=== PATIENT | male | born 1960 | race Caucasian/White ===

== ENCOUNTER 2020-12-24 10:06 | Emergency (ER) | payer MEDICAID ==
[~2020-12-24] VITALS: Ht 177.8 cm; Wt 61.4 kg
[2020-12-24] MEDS ORDERED: ACETAMINOPHEN 500 MG TABLET PO ONE (14:30)
[2020-12-24] MEDS ORDERED: DOXYCYCLINE HYCLATE 100 MG TABLET PO ONE (14:30)
[2020-12-24] MEDS ORDERED: DiphenhydrAMINE HCL 25 MG CAPSULE PO ONE (14:30)
[2020-12-24] MEDS ORDERED: LORazepam 1 MG TABLET PO ONE (14:30)
[2020-12-24 14:38] LABS: BASOPHILS % (AUTO) 0.7 % (0.0-2.0); HEMOGLOBIN 14.2 g/dL (13.5-17.5); LYMPHOCYTES # (AUTO) 1.7 K/uL (1.0-4.8); MEAN CORPUSCULAR HEMOGLOBIN 31.4 pg (26.0-34.0); MEAN CORPUSCULAR HGB CONC 33.1 G/dL (31.0-37.0); MEAN CORPUSCULAR VOLUME 95 fL (80-100); MONOCYTES # (AUTO) 0.7 K/uL (0.1-1.0); MONOCYTES % (AUTO) 6.9 % (2.0-9.0); NEUTROPHILS # (AUTO) 6.9 K/uL (1.8-7.7); NEUTROPHILS % (AUTO) 71.4 % (40.0-70.0); PLATELET COUNT (AUTO) 462 K/uL (150-450); RED BLOOD CELL COUNT(AUTO) 4.53 MIL/uL (4.50-5.90); RED CELL DISTRIBUTION WIDTH 13.9 % (11.5-14.5)
[2020-12-24 14:46] LABS: ANION GAP 9 mmol/L (8-16); CALCIUM, TOTAL 9.1 mg/dL (8.8-10.5); CARBON DIOXIDE 30 mmol/L (22-29); CHLORIDE 103 mmol/L (98-107); CREATININE 0.68 mg/dL (0.60-1.30); GLOMERULAR FILTR. RATE CALC > 60 mL/min (>60); GLUCOSE,RANDOM 115 mg/dL (70-110); POTASSIUM 3.7 mmol/L (3.5-5.1); SODIUM SERUM 142 mmol/L (136-145); UREA NITROGEN, BLOOD 16 mg/dL (7-18)
[2020-12-24 14:52] LABS: ALANINE AMINOTRANSFERASE 21 U/L (12-78); ALKALINE PHOSPHATASE 125 U/L (46-116); ASPARTATE AMINOTRANSFERASE 19 U/L (15-37); BILIRUBIN,TOTAL 0.6 mg/dL (0.1-1.0); TOTAL PROTEIN, SERUM 8.9 g/dL (6.4-8.2)
[2020-12-24 16:17] VITALS: BP 126/80
[2020-12-24 17:11] LABS: AMPHET/METH SCREEN,URINE NEGATIVE (NEGATIVE); BARBITURATE SCREEN, URINE NEGATIVE (NEGATIVE); BENZODIAZEPINES SCREEN,URINE NEGATIVE (NEGATIVE); CANNABINOID SCREEN,URINE NEGATIVE (NEGATIVE); COCAINE SCREEN,URINE NEGATIVE (NEGATIVE); METHADONE SCREEN, URINE NEGATIVE (NEGATIVE); OPIATE SCREEN,URINE NEGATIVE (NEGATIVE); PHENCYCLIDINE SCREEN,URINE NEGATIVE (NEGATIVE)
== END 2020-12-25 00:11 | disposition home or self-care (01) ==
LOC: EMS 10:06
DX: S30.861A Insect bite (nonvenomous) of abdominal wall, initial encounter (principal); F20.9 Schizophrenia, unspecified; W57.XXXA Bitten or stung by nonvenomous insect and other nonvenomous arthropods, initial encounter; Y93.89 Activity, other specified; Y92.89 Other specified places as the place of occurrence of the external cause; Y99.8 Other external cause status
CPT/HCPCS: 36415; 80053; 80307; 85025; 99284; G0480

== ENCOUNTER 2021-01-24 09:09 | Inpatient (IN) | payer MEDICAID ==
[~2021-01-24] VITALS: Ht 177.8 cm; Wt 66.8 kg
[2021-01-24 10:08] LABS: EOSINOPHILS % (AUTO) 1.2 % (1.0-6.0); HEMATOCRIT 47.5 % (41-53); HEMOGLOBIN 15.7 g/dL (13.5-17.5); LYMPHOCYTES # (AUTO) 1.3 K/uL (1.0-4.8); LYMPHOCYTES % (AUTO) 18.5 % (22.0-44.0); MEAN CORPUSCULAR HGB CONC 32.9 G/dL (31.0-37.0); MEAN CORPUSCULAR VOLUME 94 fL (80-100); MONOCYTES # (AUTO) 0.5 K/uL (0.1-1.0); MONOCYTES % (AUTO) 7.5 % (2.0-9.0); NEUTROPHILS # (AUTO) 5.2 K/uL (1.8-7.7); NEUTROPHILS % (AUTO) 71.8 % (40.0-70.0); PLATELET COUNT (AUTO) 447 K/uL (150-450); RED BLOOD CELL COUNT(AUTO) 5.05 MIL/uL (4.50-5.90); RED CELL DISTRIBUTION WIDTH 13.3 % (11.5-14.5)
[2021-01-24 10:17] LABS: ANION GAP 5 mmol/L (8-16); CALCIUM, TOTAL 9.3 mg/dL (8.8-10.5); CARBON DIOXIDE 32 mmol/L (22-29); CHLORIDE 107 mmol/L (98-107); CREATININE 0.83 mg/dL (0.60-1.30); GLOMERULAR FILTR. RATE CALC > 60 mL/min (>60); GLUCOSE,RANDOM 151 mg/dL (70-110); POTASSIUM 4.6 mmol/L (3.5-5.1); SODIUM SERUM 144 mmol/L (136-145); UREA NITROGEN, BLOOD 19 mg/dL (7-18)
[2021-01-24 10:23] LABS: ALANINE AMINOTRANSFERASE 14 U/L (12-78); ALBUMIN 3.8 g/dL (3.4-5.0); ALKALINE PHOSPHATASE 104 U/L (46-116); ASPARTATE AMINOTRANSFERASE 14 U/L (15-37); BILIRUBIN,TOTAL 0.7 mg/dL (0.1-1.0); TOTAL PROTEIN, SERUM 8.6 g/dL (6.4-8.2)
[2021-01-24] MEDS ORDERED: LORazepam 2 MG TABLET PO PRN (14:15)
[2021-01-24] MEDS ORDERED: QUEtiapine FUMARATE 100 MG TABLET PO PRN (14:15)
[2021-01-24 14:33] LABS: COVID AG,FIA SOURCE NASOPHARYNGEAL
[2021-01-24 14:50] LABS: AMPHET/METH SCREEN,URINE NEGATIVE (NEGATIVE); BARBITURATE SCREEN, URINE NEGATIVE (NEGATIVE); BENZODIAZEPINES SCREEN,URINE NEGATIVE (NEGATIVE); CANNABINOID SCREEN,URINE NEGATIVE (NEGATIVE); COCAINE SCREEN,URINE NEGATIVE (NEGATIVE); METHADONE SCREEN, URINE NEGATIVE (NEGATIVE); OPIATE SCREEN,URINE NEGATIVE (NEGATIVE); PHENCYCLIDINE SCREEN,URINE NEGATIVE (NEGATIVE)
[2021-01-24 15:08] LABS: APPEARANCE,URINE CLEAR (CLEAR); GLUCOSE, URINE (UA) NEGATIVE (NEGATIVE); KETONES,URINE 15 mg/dL (NEGATIVE); LEUKOCYTE ESTERASE ,URINE NEGATIVE (NEGATIVE); NITRATE,URINE NEGATIVE (NEGATIVE); OCCULT BLOOD,URINE NEGATIVE (NEGATIVE); PROTEIN,URINE NEGATIVE (NEGATIVE); UROBILINOGEN,URINE 0.2 mg/dL (<=1.0)
[2021-01-24 15:09] LABS: BILIRUBIN,URINE PRELIM. POSITIVE (NEGATIVE)
[2021-01-24] MEDS: ZOLPIDEM TARTRATE 10 MG TABLET PO PRN (20:42)
[2021-01-25 08:44] VITALS: BP 114/78
[2021-01-25 10:13] LABS: CHOL/HDL RATIO 3.2 (4.2-7.3)
[2021-01-25] MEDS ORDERED: MAG HYDROX/AL HYDROX/SIMETH ES 30 ML SUSPENSION UDCUP PO PRN (10:15)
[2021-01-25] MEDS ORDERED: NICOTINE 14 MG/24 HOUR PATCH TD PRN (10:15)
[2021-01-25] MEDS ORDERED: ALBUTEROL SULFATE HFA 90 MCG/PUFF 8 GM INHALER IH PRN (10:15)
[2021-01-25] MEDS ORDERED: LOPERAMIDE HCL 2 MG CAPSULE PO PRN (10:15)
[2021-01-25] MEDS ORDERED: ONDANSETRON HCL 4 MG TABLET PO PRN (10:15)
[2021-01-25] MEDS ORDERED: MAGNESIUM HYDROXIDE SUSPENSION 30 ML UDCUP PO PRN (10:15)
[2021-01-25] MEDS ORDERED: GuaiFENesin/D-METHORPHAN [SUGAR-FREE] 200-20MG/10 ML SYRUP UDCUP PO PRN (10:15)
[2021-01-25] MEDS ORDERED: IBUPROFEN 400 MG TABLET PO PRN (10:15)
[2021-01-25] MEDS ORDERED: CloNIDine HCL 0.1 MG TABLET PO PRN (10:15)
[2021-01-25] MEDS ORDERED: PETROLATUM,WHITE 28 GM JELLY TP PRN (10:15)
[2021-01-25] MEDS ORDERED: DOCUSATE SODIUM 100 MG CAPSULE PO PRN (10:15)
[2021-01-25] MEDS ORDERED: ACETAMINOPHEN 325 MG TABLET PO PRN (10:15)
[2021-01-25] MEDS: OLANZapine 5 MG TABLET PO SCH ×2 (11:42→16:35)
[2021-01-25] MEDS ORDERED: PERMETHRIN 5% 60 GM CREAM TP ONE (14:45)
[2021-01-25] MEDS ORDERED: INFLUENZA VIRUS VACCINE QVS 2021-22 (6MO+)/PF 60 MCG/0.5 ML SYRINGE IM. ONE (14:45)
[2021-01-25 16:38] VITALS: BP_SYST 114
[2021-01-25 16:51] VITALS: BP 125/75
[2021-01-26] MEDS: OLANZapine 5 MG TABLET PO SCH ×2 (08:35→16:08)
[2021-01-26 10:18] VITALS: BP 126/84
[2021-01-26 16:00] VITALS: BP 117/79
[2021-01-27 08:59] VITALS: BP 108/68
[2021-01-27] MEDS: OLANZapine 5 MG TABLET PO SCH ×2 (09:44→16:23)
[2021-01-27 16:56] VITALS: BP 107/76
[2021-01-28] MEDS: OLANZapine 5 MG TABLET PO SCH ×2 (08:25→16:03)
[2021-01-28 09:00] VITALS: BP 112/74
[2021-01-28 16:00] VITALS: BP 112/77
[2021-01-29] MEDS: OLANZapine 5 MG TABLET PO SCH (08:44)
[2021-01-29 09:19] VITALS: BP 110/79
[2021-01-29 16:00] VITALS: BP 101/80
[2021-01-29] MEDS: OLANZapine 10 MG TABLET PO SCH (20:01)
[2021-01-30 09:00] VITALS: BP 122/79
[2021-01-30] MEDS: OLANZapine 5 MG TABLET PO SCH (09:00)
[2021-01-30 17:05] VITALS: BP 101/71
[2021-01-30] MEDS: OLANZapine 10 MG TABLET PO SCH (20:10)
[2021-01-31] MEDS: OLANZapine 5 MG TABLET PO SCH (08:39)
[2021-01-31 09:41] VITALS: BP 119/76
[2021-01-31 16:00] VITALS: BP 116/65
[2021-01-31] MEDS: OLANZapine 10 MG TABLET PO SCH (20:09)
[2021-02-01 08:52] LABS: COVID AG,FIA SOURCE NASOPHARYNGEAL
[2021-02-01] MEDS: OLANZapine 5 MG TABLET PO SCH (08:56)
[2021-02-01 10:11] VITALS: BP 138/88
[2021-02-01 16:21] VITALS: BP 139/77
[2021-02-01] MEDS: OLANZapine 10 MG TABLET PO SCH (20:27)
[2021-02-02 08:00] VITALS: BP 148/86
[2021-02-02] MEDS: OLANZapine 5 MG TABLET PO SCH (08:21)
[2021-02-02 16:00] VITALS: BP 118/74
[2021-02-02] MEDS: OLANZapine 10 MG TABLET PO SCH (20:05)
[2021-02-03 08:45] VITALS: BP 135/85
[2021-02-03] MEDS: OLANZapine 5 MG TABLET PO SCH (09:24)
[2021-02-03 16:00] VITALS: BP 125/86
[2021-02-03] MEDS: OLANZapine 10 MG TABLET PO SCH (20:07)
[2021-02-04] MEDS: OLANZapine 5 MG TABLET PO SCH (09:11)
[2021-02-04 16:31] VITALS: BP 115/74
[2021-02-04] MEDS: OLANZapine 10 MG TABLET PO SCH (20:51)
[2021-02-05 08:00] VITALS: BP 125/81
[2021-02-05] MEDS: OLANZapine 5 MG TABLET PO SCH (08:35)
[2021-02-05 16:15] VITALS: BP 126/80
[2021-02-05] MEDS: OLANZapine 10 MG TABLET PO SCH (20:21)
[2021-02-05] MEDS: ZOLPIDEM TARTRATE 10 MG TABLET PO PRN (21:55)
[2021-02-06 08:00] VITALS: BP 109/73
[2021-02-06] MEDS ORDERED: OLAN5TAB52 PO (09:28)
[2021-02-06] MEDS ORDERED: OLAN10TA74 PO (09:28)
[2021-02-06] MEDS: OLANZapine 5 MG TABLET PO SCH (09:32)
== END 2021-02-06 16:45 | disposition home or self-care (01) | DRG 750 ==
LOC: EMS 09:09 → 3EX 23:19 → 3EI 01-26 14:53
PROVIDERS: ADMIT Psychiatry & Neurology Psychiatry; ATTEND Psychiatry & Neurology Psychiatry
DX: F20.0 Paranoid schizophrenia (principal); E43 Unspecified severe protein-calorie malnutrition; R45.851 Suicidal ideations; Z20.822 Contact with and (suspected) exposure to COVID-19; R73.9 Hyperglycemia, unspecified; Z68.1 Body mass index [BMI] 19.9 or less, adult; T14.8XXA Other injury of unspecified body region, initial encounter; W57.XXXA Bitten or stung by nonvenomous insect and other nonvenomous arthropods, initial encounter; Y93.89 Activity, other specified; Y92.89 Other specified places as the place of occurrence of the external cause; Z23 Encounter for immunization; Y99.8 Other external cause status
CPT/HCPCS: 80053; 80061; 81003; 83036; 85025; 90686; 99285; G0378; G0480

== ENCOUNTER 2021-05-18 14:13 | Inpatient (IN) | payer MEDICAID ==
[~2021-05-18] VITALS: Ht 177.8 cm; Wt 75.8 kg
[~2021-05-18 14:13] MED LIST: OLAN10TA74 PO; OLAN5TAB52 PO
[2021-05-18 15:36] LABS: COVID AG,FIA SOURCE NASAL SWAB
[2021-05-18 15:43] LABS: BASOPHILS % (AUTO) 0.8 % (0.0-2.0); EOSINOPHILS % (AUTO) 1.5 % (1.0-6.0); HEMATOCRIT 41.4 % (41-53); HEMOGLOBIN 13.8 g/dL (13.5-17.5); LYMPHOCYTES # (AUTO) 1.6 K/uL (1.0-4.8); LYMPHOCYTES % (AUTO) 20.2 % (22.0-44.0); MEAN CORPUSCULAR HEMOGLOBIN 30.7 pg (26.0-34.0); MEAN CORPUSCULAR HGB CONC 33.4 G/dL (31.0-37.0); MEAN CORPUSCULAR VOLUME 92 fL (80-100); MONOCYTES # (AUTO) 0.8 K/uL (0.1-1.0); MONOCYTES % (AUTO) 10.2 % (2.0-9.0); NEUTROPHILS # (AUTO) 5.4 K/uL (1.8-7.7); NEUTROPHILS % (AUTO) 67.3 % (40.0-70.0); PLATELET COUNT (AUTO) 391 K/uL (150-450); RED BLOOD CELL COUNT(AUTO) 4.49 MIL/uL (4.50-5.90); RED CELL DISTRIBUTION WIDTH 13.8 % (11.5-14.5)
[2021-05-18 15:58] LABS: ANION GAP 5 mmol/L (8-16); CALCIUM, TOTAL 9.1 mg/dL (8.8-10.5); CARBON DIOXIDE 29 mmol/L (22-29); CHLORIDE 104 mmol/L (98-107); CREATININE 0.77 mg/dL (0.60-1.30); GLOMERULAR FILTR. RATE CALC > 60 mL/min (>60); GLUCOSE,RANDOM 103 mg/dL (70-110); POTASSIUM 4.2 mmol/L (3.5-5.1); SODIUM SERUM 138 mmol/L (136-145); UREA NITROGEN, BLOOD 7 mg/dL (7-18)
[2021-05-18 16:04] LABS: ALANINE AMINOTRANSFERASE 43 U/L (12-78); ALBUMIN 3.6 g/dL (3.4-5.0); ALKALINE PHOSPHATASE 92 U/L (46-116); ASPARTATE AMINOTRANSFERASE 20 U/L (15-37); BILIRUBIN,TOTAL 0.3 mg/dL (0.1-1.0); TOTAL PROTEIN, SERUM 8.7 g/dL (6.4-8.2)
[2021-05-18 18:16] LABS: AMPHET/METH SCREEN,URINE NEGATIVE (NEGATIVE); BARBITURATE SCREEN, URINE NEGATIVE (NEGATIVE); BENZODIAZEPINES SCREEN,URINE NEGATIVE (NEGATIVE); CANNABINOID SCREEN,URINE NEGATIVE (NEGATIVE); COCAINE SCREEN,URINE NEGATIVE (NEGATIVE); METHADONE SCREEN, URINE NEGATIVE (NEGATIVE); OPIATE SCREEN,URINE NEGATIVE (NEGATIVE); PHENCYCLIDINE SCREEN,URINE NEGATIVE (NEGATIVE)
[2021-05-18] MEDS ORDERED: OLANZapine 5 MG TABLET PO ONE (21:00)
[2021-05-19] MEDS ORDERED: LORazepam 2 MG TABLET PO PRN (00:15)
[2021-05-19] MEDS ORDERED: OLANZapine 5 MG RAPDIS TABLET PO PRN (00:15)
[2021-05-19] MEDS ORDERED: ZOLPIDEM TARTRATE 10 MG TABLET PO PRN (00:15)
[2021-05-19 01:18] LABS: APPEARANCE,URINE CLEAR (CLEAR); BILIRUBIN,URINE NEGATIVE (NEGATIVE); GLUCOSE, URINE (UA) NEGATIVE (NEGATIVE); KETONES,URINE NEGATIVE (NEGATIVE); LEUKOCYTE ESTERASE ,URINE TRACE (NEGATIVE); NITRATE,URINE NEGATIVE (NEGATIVE); OCCULT BLOOD,URINE NEGATIVE (NEGATIVE); PROTEIN,URINE TRACE mg/dL (NEGATIVE); SPECIFIC GRAVITIY, URINE 1.016 (1.003-1.030); UROBILINOGEN,URINE <=1.0 mg/dL (<=1.0)
[2021-05-19 02:07] LABS: BACTERIA,URINE None Seen /HPF (None Seen); RBC,URINE 0-2 /HPF (0-2); WBC,URINE 0-2 /HPF (0-5)
[2021-05-19 08:58] VITALS: BP 126/83
[2021-05-19] MEDS ORDERED: HydrOXYzine PAMOATE 50 MG CAPSULE PO PRN (14:15)
[2021-05-19] MEDS ORDERED: PROMETHAZINE HCL 25 MG TABLET PO PRN (14:15)
[2021-05-19] MEDS ORDERED: LOPERAMIDE HCL 2 MG CAPSULE PO PRN (14:15)
[2021-05-19] MEDS ORDERED: MAG HYDROX/AL HYDROX/SIMETH ES 30 ML SUSPENSION UDCUP PO PRN (14:15)
[2021-05-19] MEDS ORDERED: MAGNESIUM HYDROXIDE SUSPENSION 30 ML UDCUP PO PRN (14:15)
[2021-05-19] MEDS ORDERED: ACETAMINOPHEN 325 MG TABLET PO PRN (14:15)
[2021-05-19] MEDS ORDERED: GuaiFENesin/D-METHORPHAN [SUGAR-FREE] 200-20MG/10 ML SYRUP UDCUP PO PRN (14:15)
[2021-05-19] MEDS ORDERED: TUBERCULIN, PURIFIED PROTEIN DERIVATIVE 5 TU/0.1 ML SYRINGE ID ONE (14:15)
[2021-05-19 16:15] VITALS: BP 123/79
[2021-05-19] MEDS: THIAMINE 100 MG TABLET PO SCH (16:38)
[2021-05-19] MEDS: OLANZapine 5 MG RAPDIS TABLET PO SCH (16:39)
[2021-05-19] MEDS: MELATONIN 5 MG TABLET PO SCH (20:26)
[2021-05-19] MEDS ORDERED: OLANZapine 5 MG RAPDIS TABLET PO SCH (21:00)
[2021-05-20 08:16] LABS: HEMOGLOBIN A1C 5.3 % (3.8-5.6)
[2021-05-20 08:32] LABS: CHOL/HDL RATIO 2.9 (4.2-7.3); FREE T4 (FREE THYROXINE) 0.72 ng/dL (0.76-1.46); THYROID STIMULATING HORMONE 1.51 uIU/mL (0.36-3.74)
[2021-05-20] MEDS: FOLIC ACID 1 MG TABLET PO SCH (08:39)
[2021-05-20] MEDS: OLANZapine 5 MG RAPDIS TABLET PO SCH ×2 (08:39→16:23)
[2021-05-20] MEDS: NALTREXONE HCL 50 MG TABLET PO SCH (08:39)
[2021-05-20] MEDS: MULTIVITAMINS WITH MINERALS, THERAPEUTIC TABLET PO SCH (08:39)
[2021-05-20] MEDS: OMEGA-3/DHA/EPA/FISH OIL 1,000 MG CAPSULE PO SCH (08:39)
[2021-05-20] MEDS: THIAMINE 100 MG TABLET PO SCH ×2 (08:39→16:22)
[2021-05-20] MEDS ORDERED: FLUoxetine HCL 20 MG CAPSULE PO SCH (09:00)
[2021-05-20 09:13] VITALS: BP 126/91
[2021-05-20 16:12] VITALS: BP 121/76
[2021-05-20] MEDS: MELATONIN 5 MG TABLET PO SCH (20:38)
[2021-05-21] MEDS: OMEGA-3/DHA/EPA/FISH OIL 1,000 MG CAPSULE PO SCH (08:24)
[2021-05-21] MEDS: THIAMINE 100 MG TABLET PO SCH ×2 (08:24→16:42)
[2021-05-21] MEDS: MULTIVITAMINS WITH MINERALS, THERAPEUTIC TABLET PO SCH (08:24)
[2021-05-21] MEDS: NALTREXONE HCL 50 MG TABLET PO SCH (08:25)
[2021-05-21] MEDS: FLUoxetine HCL 20 MG CAPSULE PO SCH (08:25)
[2021-05-21] MEDS: FOLIC ACID 1 MG TABLET PO SCH (08:25)
[2021-05-21] MEDS: OLANZapine 5 MG RAPDIS TABLET PO SCH (08:26)
[2021-05-21 09:09] VITALS: BP 138/91
[2021-05-21 16:58] VITALS: BP 130/80
[2021-05-21] MEDS: OLANZapine 10 MG RAPDIS TABLET PO SCH (20:25)
[2021-05-21] MEDS: MELATONIN 5 MG TABLET PO SCH (20:26)
[2021-05-22 08:19] VITALS: BP 122/66
[2021-05-22] MEDS: FLUoxetine HCL 20 MG CAPSULE PO SCH (10:04)
[2021-05-22] MEDS: FOLIC ACID 1 MG TABLET PO SCH (10:04)
[2021-05-22] MEDS: OMEGA-3/DHA/EPA/FISH OIL 1,000 MG CAPSULE PO SCH (10:04)
[2021-05-22] MEDS: THIAMINE 100 MG TABLET PO SCH ×2 (10:04→16:32)
[2021-05-22] MEDS: MULTIVITAMINS WITH MINERALS, THERAPEUTIC TABLET PO SCH (10:04)
[2021-05-22] MEDS: NALTREXONE HCL 50 MG TABLET PO SCH (10:04)
[2021-05-22 16:14] VITALS: BP 132/83
[2021-05-22] MEDS: OLANZapine 10 MG RAPDIS TABLET PO SCH (20:44)
[2021-05-22] MEDS: MELATONIN 5 MG TABLET PO SCH (20:44)
[2021-05-23 08:30] VITALS: BP 134/96
[2021-05-23] MEDS: OMEGA-3/DHA/EPA/FISH OIL 1,000 MG CAPSULE PO SCH (09:58)
[2021-05-23] MEDS: NALTREXONE HCL 50 MG TABLET PO SCH (09:58)
[2021-05-23] MEDS: FLUoxetine HCL 20 MG CAPSULE PO SCH (09:58)
[2021-05-23] MEDS: THIAMINE 100 MG TABLET PO SCH ×2 (09:59→16:19)
[2021-05-23] MEDS: MULTIVITAMINS WITH MINERALS, THERAPEUTIC TABLET PO SCH (09:59)
[2021-05-23] MEDS: FOLIC ACID 1 MG TABLET PO SCH (10:04)
[2021-05-23 16:21] VITALS: BP 132/79
[2021-05-23] MEDS: MELATONIN 5 MG TABLET PO SCH (20:21)
[2021-05-23] MEDS: OLANZapine 10 MG RAPDIS TABLET PO SCH (20:21)
[2021-05-24] MEDS: NALTREXONE HCL 50 MG TABLET PO SCH (08:18)
[2021-05-24] MEDS: FLUoxetine HCL 20 MG CAPSULE PO SCH (08:18)
[2021-05-24] MEDS: OMEGA-3/DHA/EPA/FISH OIL 1,000 MG CAPSULE PO SCH (08:20)
[2021-05-24] MEDS: FOLIC ACID 1 MG TABLET PO SCH (08:20)
[2021-05-24] MEDS: THIAMINE 100 MG TABLET PO SCH ×2 (08:21→16:44)
[2021-05-24] MEDS: MULTIVITAMINS WITH MINERALS, THERAPEUTIC TABLET PO SCH (08:21)
[2021-05-24 08:49] VITALS: BP 128/77
[2021-05-24 09:53] LABS: COVID AG,FIA SOURCE NASOPHARYNGEAL
[2021-05-24 16:42] VITALS: BP 122/80
[2021-05-24] MEDS: MELATONIN 5 MG TABLET PO SCH (20:15)
[2021-05-24] MEDS: OLANZapine 10 MG RAPDIS TABLET PO SCH (20:16)
[2021-05-25 09:02] VITALS: BP 151/99
[2021-05-25] MEDS: NALTREXONE HCL 50 MG TABLET PO SCH (10:19)
[2021-05-25] MEDS: THIAMINE 100 MG TABLET PO SCH ×2 (10:19→16:26)
[2021-05-25] MEDS: FLUoxetine HCL 20 MG CAPSULE PO SCH (10:20)
[2021-05-25] MEDS: OMEGA-3/DHA/EPA/FISH OIL 1,000 MG CAPSULE PO SCH (10:20)
[2021-05-25] MEDS: MULTIVITAMINS WITH MINERALS, THERAPEUTIC TABLET PO SCH (10:20)
[2021-05-25] MEDS: FOLIC ACID 1 MG TABLET PO SCH (10:20)
[2021-05-25 16:00] VITALS: BP 130/73
[2021-05-25] MEDS: MELATONIN 5 MG TABLET PO SCH (20:25)
[2021-05-25] MEDS: OLANZapine 10 MG RAPDIS TABLET PO SCH (20:25)
[2021-05-26 08:37] VITALS: BP 138/76
[2021-05-26] MEDS: FLUoxetine HCL 20 MG CAPSULE PO SCH (08:53)
[2021-05-26] MEDS: MULTIVITAMINS WITH MINERALS, THERAPEUTIC TABLET PO SCH (08:54)
[2021-05-26] MEDS: NALTREXONE HCL 50 MG TABLET PO SCH (08:54)
[2021-05-26] MEDS: OMEGA-3/DHA/EPA/FISH OIL 1,000 MG CAPSULE PO SCH (08:54)
[2021-05-26] MEDS: FOLIC ACID 1 MG TABLET PO SCH (08:54)
[2021-05-26] MEDS: THIAMINE 100 MG TABLET PO SCH ×2 (08:54→16:19)
[2021-05-26 16:15] VITALS: BP 131/87
[2021-05-26] MEDS: MELATONIN 5 MG TABLET PO SCH (20:26)
[2021-05-26] MEDS: OLANZapine 10 MG RAPDIS TABLET PO SCH (20:26)
[2021-05-27 08:21] VITALS: BP 132/81
[2021-05-27] MEDS: NALTREXONE HCL 50 MG TABLET PO SCH (09:13)
[2021-05-27] MEDS: MULTIVITAMINS WITH MINERALS, THERAPEUTIC TABLET PO SCH (09:13)
[2021-05-27] MEDS: FLUoxetine HCL 20 MG CAPSULE PO SCH (09:15)
[2021-05-27] MEDS: OMEGA-3/DHA/EPA/FISH OIL 1,000 MG CAPSULE PO SCH (09:15)
[2021-05-27] MEDS: THIAMINE 100 MG TABLET PO SCH ×2 (09:15→17:22)
[2021-05-27] MEDS: FOLIC ACID 1 MG TABLET PO SCH (09:15)
[2021-05-27 16:56] VITALS: BP 122/72
[2021-05-27] MEDS: OLANZapine 10 MG RAPDIS TABLET PO SCH (20:36)
[2021-05-27] MEDS: MELATONIN 5 MG TABLET PO SCH (20:36)
[2021-05-28 09:03] VITALS: BP 132/84
[2021-05-28] MEDS: FLUoxetine HCL 20 MG CAPSULE PO SCH (09:27)
[2021-05-28] MEDS: FOLIC ACID 1 MG TABLET PO SCH (09:27)
[2021-05-28] MEDS: MULTIVITAMINS WITH MINERALS, THERAPEUTIC TABLET PO SCH (09:27)
[2021-05-28] MEDS: NALTREXONE HCL 50 MG TABLET PO SCH (09:27)
[2021-05-28] MEDS: THIAMINE 100 MG TABLET PO SCH ×2 (09:27→16:17)
[2021-05-28] MEDS: OMEGA-3/DHA/EPA/FISH OIL 1,000 MG CAPSULE PO SCH (09:27)
[2021-05-28 16:33] VITALS: BP 124/82
[2021-05-28] MEDS: MELATONIN 5 MG TABLET PO SCH (20:00)
[2021-05-28] MEDS: OLANZapine 10 MG RAPDIS TABLET PO SCH (20:00)
[2021-05-29] MEDS: OMEGA-3/DHA/EPA/FISH OIL 1,000 MG CAPSULE PO SCH (08:18)
[2021-05-29] MEDS: MULTIVITAMINS WITH MINERALS, THERAPEUTIC TABLET PO SCH (08:18)
[2021-05-29] MEDS: THIAMINE 100 MG TABLET PO SCH (08:18)
[2021-05-29] MEDS: FLUoxetine HCL 20 MG CAPSULE PO SCH (08:18)
[2021-05-29] MEDS: NALTREXONE HCL 50 MG TABLET PO SCH (08:18)
[2021-05-29] MEDS: FOLIC ACID 1 MG TABLET PO SCH (08:18)
[2021-05-29 09:01] VITALS: BP 137/99
[2021-05-29 12:05] VITALS: BP 140/82
[2021-05-29 16:00] VITALS: BP 126/81
[2021-05-29 16:11] LABS: COVID AG,FIA SOURCE NASOPHARYNGEAL
[2021-05-29] MEDS: OLANZapine 10 MG RAPDIS TABLET PO SCH (20:02)
[2021-05-29] MEDS: MELATONIN 5 MG TABLET PO SCH (20:02)
[2021-05-30 08:53] VITALS: BP 119/58
[2021-05-30] MEDS: NALTREXONE HCL 50 MG TABLET PO SCH (08:56)
[2021-05-30] MEDS: FLUoxetine HCL 20 MG CAPSULE PO SCH (08:56)
[2021-05-30] MEDS: MULTIVITAMINS WITH MINERALS, THERAPEUTIC TABLET PO SCH (08:56)
[2021-05-30] MEDS: OMEGA-3/DHA/EPA/FISH OIL 1,000 MG CAPSULE PO SCH (08:56)
[2021-05-30 16:21] VITALS: BP 131/78
[2021-05-30] MEDS: MELATONIN 5 MG TABLET PO SCH (20:15)
[2021-05-30] MEDS: OLANZapine 10 MG RAPDIS TABLET PO SCH (20:15)
[2021-05-31] MEDS: MULTIVITAMINS WITH MINERALS, THERAPEUTIC TABLET PO SCH (08:35)
[2021-05-31] MEDS: OMEGA-3/DHA/EPA/FISH OIL 1,000 MG CAPSULE PO SCH (08:35)
[2021-05-31] MEDS: FLUoxetine HCL 20 MG CAPSULE PO SCH (08:35)
[2021-05-31] MEDS: NALTREXONE HCL 50 MG TABLET PO SCH (08:36)
[2021-05-31] MEDS ORDERED: OMEG-108 PO (09:03)
[2021-05-31] MEDS ORDERED: NALT50TA6 PO (09:03)
[2021-05-31] MEDS ORDERED: MELA5TAB40 PO (09:03)
[2021-05-31] MEDS ORDERED: FLUO20CA36 PO (09:03)
[2021-05-31 09:20] VITALS: BP 143/76
== END 2021-05-31 10:00 | disposition home or self-care (01) | DRG 750 ==
LOC: EMS 14:13 → 3EI 05-19 06:00
PROVIDERS: ADMIT Psychiatry & Neurology Psychiatry; ATTEND Psychiatry & Neurology Psychiatry
DX: F25.1 Schizoaffective disorder, depressive type (principal); R45.850 Homicidal ideations; R45.851 Suicidal ideations; F41.9 Anxiety disorder, unspecified; M19.079 Primary osteoarthritis, unspecified ankle and foot; N39.0 Urinary tract infection, site not specified; Z20.822 Contact with and (suspected) exposure to COVID-19; Z91.51 Personal history of suicidal behavior
CPT/HCPCS: 80053; 80061; 81001; 83036; 84439; 84443; 85025; 86592; 93005; 99285; G0480; Q9967

== ENCOUNTER 2023-12-04 18:19 | Inpatient (IN) | payer MEDICARE, MEDICAID ==
[~2023-12-04] VITALS: Ht 177.8 cm; Wt 72.0 kg
[~2023-12-04 18:19] MED LIST changes: +FLUO-418 PO; +MELA5TAB40 PO; +NALT50TA33 PO; -OLAN5TAB52 PO; +OMEG-135 PO
[2023-12-04 18:57] LABS: BASOPHILS % (AUTO) 0.4 % (0.0-2.0); EOSINOPHILS % (AUTO) 2.2 % (1.0-6.0); HEMATOCRIT 29.2 % (41-53); HEMOGLOBIN 9.5 g/dL (13.5-17.5); LYMPHOCYTES # (AUTO) 1.3 K/uL (1.0-4.8); LYMPHOCYTES % (AUTO) 14.3 % (22.0-44.0); MEAN CORPUSCULAR HEMOGLOBIN 31.3 pg (26.0-34.0); MEAN CORPUSCULAR HGB CONC 32.5 G/dL (31.0-37.0); MEAN CORPUSCULAR VOLUME 96 fL (80-100); MONOCYTES # (AUTO) 0.8 K/uL (0.1-1.0); MONOCYTES % (AUTO) 9.2 % (2.0-9.0); NEUTROPHILS # (AUTO) 6.5 K/uL (1.8-7.7); NEUTROPHILS % (AUTO) 73.9 % (40.0-70.0); PLATELET COUNT (AUTO) 463 K/uL (150-450); RED BLOOD CELL COUNT(AUTO) 3.03 MIL/uL (4.50-5.90); RED CELL DISTRIBUTION WIDTH 16.5 % (11.5-14.5); WHITE BLOOD COUNT (AUTO) 8.8 K/uL (4.5-11.0)
[2023-12-04 19:05] LABS: ANION GAP 6 mmol/L (8-16); CALCIUM, TOTAL 8.4 mg/dL (8.8-10.5); CARBON DIOXIDE 31 mmol/L (22-29); CHLORIDE 104 mmol/L (98-107); CREATININE 0.68 mg/dL (0.60-1.30); GLOMERULAR FILTR. RATE CALC > 60 mL/min (>60); GLUCOSE,RANDOM 103 mg/dL (70-110); SODIUM SERUM 141 mmol/L (136-145); UREA NITROGEN, BLOOD 15 mg/dL (7-18)
[2023-12-04 19:19] LABS: ALCOHOL, BLOOD (SERUM) < 3 mg/dL (0-10)
[2023-12-04 19:54] LABS: COVID AG,FIA SOURCE NASAL SWAB
[2023-12-04 20:16] LABS: SARS-COV2 (COVID) ANTIGEN,FIA Negative (Negative)
[2023-12-04] MEDS ORDERED: POTASSIUM CHL 10 MEQ/WATER 50 ML IV PRN (23:00)
[2023-12-04] MEDS ORDERED: OxyCODONE HCL/ACETAMINOPHEN 5-325 MG TABLET PO PRN (23:00)
[2023-12-04] MEDS: POTASSIUM CHLORIDE 20 MEQ ER TABLET PO PRN (23:41)
[2023-12-04] MEDS: HEPARIN SODIUM,PORCINE 5,000 UNITS/ML VIAL SQ SCH (23:42)
[2023-12-04] MEDS: SODIUM CHLORIDE 0.9% 1,000 ML IV ONE (23:42)
[2023-12-05] MEDS: FAMOTIDINE 20 MG TABLET PO SCH (09:50)
[2023-12-05] MEDS: DOCUSATE SODIUM 100 MG CAPSULE PO SCH (09:50)
[2023-12-05 14:40] LABS: BASOPHILS % (AUTO) 0.5 % (0.0-2.0); EOSINOPHILS % (AUTO) 2.4 % (1.0-6.0); HEMATOCRIT 30.9 % (41-53); HEMOGLOBIN 10.4 g/dL (13.5-17.5); LYMPHOCYTES # (AUTO) 1.4 K/uL (1.0-4.8); LYMPHOCYTES % (AUTO) 13.8 % (22.0-44.0); MEAN CORPUSCULAR HEMOGLOBIN 32.4 pg (26.0-34.0); MEAN CORPUSCULAR HGB CONC 33.5 G/dL (31.0-37.0); MEAN CORPUSCULAR VOLUME 97 fL (80-100); MONOCYTES # (AUTO) 0.8 K/uL (0.1-1.0); MONOCYTES % (AUTO) 8.4 % (2.0-9.0); NEUTROPHILS # (AUTO) 7.5 K/uL (1.8-7.7); NEUTROPHILS % (AUTO) 74.9 % (40.0-70.0); PLATELET COUNT (AUTO) 481 K/uL (150-450); RED CELL DISTRIBUTION WIDTH 16.4 % (11.5-14.5)
[2023-12-05 14:49] LABS: ANION GAP 9 mmol/L (8-16); CALCIUM, TOTAL 8.4 mg/dL (8.8-10.5); CARBON DIOXIDE 27 mmol/L (22-29); CHLORIDE 105 mmol/L (98-107); CREATININE 0.63 mg/dL (0.60-1.30); GLOMERULAR FILTR. RATE CALC > 60 mL/min (>60); GLUCOSE,RANDOM 133 mg/dL (70-110); POTASSIUM 3.8 mmol/L (3.5-5.1); SODIUM SERUM 141 mmol/L (136-145); UREA NITROGEN, BLOOD 12 mg/dL (7-18)
[2023-12-05 15:37] VITALS: BP 140/78; PULSE 108; RESP 19; TEMP 98.2; O2SAT 97
[2023-12-05] MEDS ORDERED: ERGO500054 PO (16:10)
[2023-12-05] MEDS ORDERED: TAMS0.4C94 PO (16:10)
[2023-12-05] MEDS ORDERED: FAMO20 PO (16:10)
[2023-12-05] MEDS ORDERED: HALO5TAB2 PO (16:10)
[2023-12-05] MEDS ORDERED: FINA5TAB41 PO (16:10)
[2023-12-05] MEDS ORDERED: ARIP5TAB37 PO (16:10)
[2023-12-05] MEDS ORDERED: MIRT-92 PO (16:10)
[2023-12-05] MEDS ORDERED: OLAN15TA98 PO (16:10)
[2023-12-05] MEDS ORDERED: MULT-1303 PO (16:10)
[2023-12-05] MEDS: LORazepam 1 MG TABLET PO PRN (16:11)
[2023-12-05 19:32] VITALS: BP 119/75; PULSE 105; RESP 18; TEMP 98; O2SAT 98
[2023-12-05 19:41] LABS: GLUCOMETER DEV NAME(LOC) ERT.6; GLUCOSE,POINT OF CARE 134 MG/DL (70-110)
[2023-12-05] MEDS: ACETAMINOPHEN 325 MG TABLET PO PRN (22:58)
[2023-12-06] MEDS ORDERED: SODIUM CL IRRIG SOLN BOTTLE 250 ML IRRIG ONE
[2023-12-06 04:35] VITALS: BP 100/67; PULSE 84; RESP 18; TEMP 97.6; O2SAT 97
[2023-12-06 07:31] VITALS: BP 107/70; PULSE 91; RESP 18; TEMP 98.4; O2SAT 97
[2023-12-06] MEDS: BENZTROPINE MESYLATE 1 MG TABLET PO SCH (11:34)
[2023-12-06] MEDS: HALOPERIDOL 5 MG TABLET PO SCH (11:34)
[2023-12-06 15:09] VITALS: BP 102/63; PULSE 107; RESP 18; TEMP 98; O2SAT 98
[2023-12-06 19:30] VITALS: BP 107/54; PULSE 107; RESP 18; TEMP 99.2; O2SAT 98
[2023-12-06] MEDS: OLANZapine 5 MG TABLET PO SCH (20:11)
[2023-12-07] MEDS: ZOLPIDEM TARTRATE 5 MG TABLET PO PRN (00:32)
[2023-12-07 04:30] VITALS: BP 124/77; PULSE 105; RESP 18; TEMP 98.2; O2SAT 97
[2023-12-07 07:33] VITALS: BP 126/78; PULSE 98; RESP 18; TEMP 98.4; O2SAT 96
[2023-12-07 15:23] VITALS: BP 103/66; PULSE 94; RESP 20; TEMP 98.4; O2SAT 97
[2023-12-07 19:20] VITALS: BP 111/65; PULSE 88; RESP 20; TEMP 98.6; O2SAT 97
[2023-12-08 04:00] VITALS: BP 104/66; PULSE 88; RESP 18; TEMP 98.1; O2SAT 95
[2023-12-08 08:19] VITALS: BP 95/64; PULSE 83; RESP 19; TEMP 98; O2SAT 98
[2023-12-08] MEDS: MULTIVITAMINS WITH MINERALS, THERAPEUTIC TABLET PO SCH (08:53)
[2023-12-08] MEDS: TAMSULOSIN HCL 0.4 MG CAPSULE PO SCH (08:53)
[2023-12-08] MEDS: FINASTERIDE 5 MG TABLET PO SCH (08:53)
[2023-12-08 13:49] LABS: APPEARANCE,URINE CLEAR (CLEAR); BILIRUBIN,URINE NEGATIVE (NEGATIVE); COLOR,URINE LIGHT YELLOW (YELLOW); GLUCOSE, URINE (UA) NEGATIVE (NEGATIVE); KETONES,URINE NEGATIVE (NEGATIVE); LEUKOCYTE ESTERASE ,URINE MODERATE (NEGATIVE); NITRATE,URINE NEGATIVE (NEGATIVE); OCCULT BLOOD,URINE MODERATE (NEGATIVE); PH,URINE 6.5 (5.0-8.0); PROTEIN,URINE TRACE mg/dL (NEGATIVE); SPECIFIC GRAVITIY, URINE 1.012 (1.003-1.030); UROBILINOGEN,URINE <=1.0 mg/dL (<=1.0)
[2023-12-08 14:00] LABS: BACTERIA,URINE Few /HPF (None Seen)
[2023-12-08] MEDS: OLANZapine 5 MG TABLET PO SCH (16:25)
[2023-12-08 18:01] VITALS: BP 114/75; PULSE 99; RESP 16; TEMP 97.8; O2SAT 97
[2023-12-08 20:07] VITALS: BP 106/65; PULSE 96; RESP 18; TEMP 98.3; O2SAT 97
[2023-12-08] MEDS: MIRTAZAPINE 15 MG TABLET PO SCH (20:36)
[2023-12-09 04:54] VITALS: BP 119/71; PULSE 87; RESP 18; TEMP 97.8; O2SAT 97
[2023-12-09 08:42] VITALS: BP 123/78; PULSE 106; RESP 18; TEMP 97.6; O2SAT 100
[2023-12-09 08:44] VITALS: BP 123/78; PULSE 106; RESP 18; TEMP 97.6; O2SAT 100
[2023-12-09 15:22] VITALS: BP 117/67; PULSE 89; RESP 18; TEMP 98; O2SAT 94
[2023-12-09 19:11] VITALS: BP 118/63; PULSE 104; RESP 18; TEMP 97.9; O2SAT 96
[2023-12-10 05:03] VITALS: BP 106/75; PULSE 93; RESP 18; TEMP 98.7; O2SAT 94
[2023-12-10 07:36] VITALS: BP 97/57; PULSE 87; RESP 18; TEMP 98; O2SAT 94
[2023-12-10 14:34] VITALS: BP 99/62; PULSE 100; RESP 18; TEMP 98.4; O2SAT 100
[2023-12-10 14:49] LABS: COVID AG,FIA SOURCE NASAL SWAB
[2023-12-10 15:09] LABS: SARS-COV2 (COVID) ANTIGEN,FIA Negative (Negative)
[2023-12-10 19:20] VITALS: BP 105/63; PULSE 79; RESP 18; TEMP 98.6; O2SAT 98
[2023-12-11 04:40] VITALS: BP 102/59; PULSE 68; RESP 18; TEMP 97.9; O2SAT 97
[2023-12-11 07:49] VITALS: BP 105/60; PULSE 104; RESP 18; TEMP 98; O2SAT 98
[2023-12-11 15:46] VITALS: BP 110/70; PULSE 111; RESP 18; TEMP 98.2; O2SAT 97
[2023-12-11 19:52] VITALS: BP 104/59; PULSE 104; RESP 18; TEMP 98.3; O2SAT 95
[2023-12-12 04:15] VITALS: BP 112/55; PULSE 92; RESP 18; TEMP 98.4; O2SAT 96
[2023-12-12 07:20] LABS: BASOPHILS % (AUTO) 0.5 % (0.0-2.0); EOSINOPHILS % (AUTO) 4.4 % (1.0-6.0); HEMATOCRIT 35.6 % (41-53); HEMOGLOBIN 11.8 g/dL (13.5-17.5); LYMPHOCYTES # (AUTO) 1.6 K/uL (1.0-4.8); LYMPHOCYTES % (AUTO) 16.9 % (22.0-44.0); MEAN CORPUSCULAR HEMOGLOBIN 32.1 pg (26.0-34.0); MEAN CORPUSCULAR VOLUME 97 fL (80-100); MONOCYTES # (AUTO) 1.1 K/uL (0.1-1.0); MONOCYTES % (AUTO) 11.5 % (2.0-9.0); NEUTROPHILS # (AUTO) 6.2 K/uL (1.8-7.7); NEUTROPHILS % (AUTO) 66.7 % (40.0-70.0); PLATELET COUNT (AUTO) 420 K/uL (150-450); RED BLOOD CELL COUNT(AUTO) 3.66 MIL/uL (4.50-5.90); RED CELL DISTRIBUTION WIDTH 15.9 % (11.5-14.5); WHITE BLOOD COUNT (AUTO) 9.2 K/uL (4.5-11.0)
[2023-12-12 07:27] LABS: ANION GAP 4 mmol/L (8-16); CALCIUM, TOTAL 8.7 mg/dL (8.8-10.5); CARBON DIOXIDE 28 mmol/L (22-29); CHLORIDE 104 mmol/L (98-107); CREATININE 0.63 mg/dL (0.60-1.30); GLOMERULAR FILTR. RATE CALC > 60 mL/min (>60); GLUCOSE,RANDOM 102 mg/dL (70-110); SODIUM SERUM 136 mmol/L (136-145); UREA NITROGEN, BLOOD 21 mg/dL (7-18)
[2023-12-12 08:39] VITALS: BP 97/56; PULSE 87; RESP 20; TEMP 97.9; O2SAT 98
[2023-12-12 16:08] VITALS: BP 94/58; PULSE 91; RESP 18; TEMP 98.5; O2SAT 97
[2023-12-12 20:08] VITALS: BP 100/62; PULSE 94; RESP 18; TEMP 97.9; O2SAT 96
[2023-12-14] MEDS ORDERED: ERGOCALCIFEROL (VIT D2) 50,000 UNITS [1,250 MCG] CAPSULE PO SCH (09:00)
== END 2023-12-12 23:03 | DRG 885 ==
LOC: EMS 18:19 → EDH 12-05 05:15 → 6S 12-05 15:30 → 4E 12-08 21:21
PROVIDERS: ADMIT Internal Medicine; ATTEND Internal Medicine
PROC: GZ56ZZZ Individual Psychotherapy, Supportive (ICD-10-PCS; principal; 2023-12-06)
PROC: GZ52ZZZ Individual Psychotherapy, Cognitive (ICD-10-PCS; 2023-12-06)
DX: F20.0 Paranoid schizophrenia (principal); R45.851 Suicidal ideations; E87.6 Hypokalemia; D64.9 Anemia, unspecified; N40.0 Benign prostatic hyperplasia without lower urinary tract symptoms; I10 Essential (primary) hypertension; F32.A Depression, unspecified
CPT/HCPCS: 80048; 81001; 82962; 85025; 87086; 93005; 99285; G0378; G0480; J1644

== ENCOUNTER 2023-12-12 17:43 | Inpatient (IN) | payer MEDICARE, MEDICAID ==
[~2023-12-12] VITALS: Ht 177.8 cm; Wt 66.0 kg
[~2023-12-12 17:43] MED LIST changes: +ARIP5TAB37 PO; +ERGO500054 PO; +FAMO20 PO; +FINA5TAB41 PO; -FLUO-418 PO; +HALO5TAB2 PO; -MELA5TAB40 PO; +MIRT-92 PO; +MULT-1303 PO; -NALT50TA33 PO; -OLAN10TA74 PO; +OLAN15TA98 PO; -OMEG-135 PO; +TAMS0.4C94 PO
[2023-12-12] MEDS ORDERED: HALOPERIDOL 5 MG TABLET PO PRN (23:15)
[2023-12-12] MEDS ORDERED: LORazepam 2 MG TABLET PO PRN (23:15)
[2023-12-12 23:25] VITALS: BP 113/76; PULSE 95; RESP 18; TEMP 98.3; O2SAT 98
[2023-12-13 07:28] LABS: BASOPHILS % (AUTO) 0.9 % (0.0-2.0); HEMATOCRIT 35.2 % (41-53); HEMOGLOBIN 11.7 g/dL (13.5-17.5); LYMPHOCYTES # (AUTO) 1.5 K/uL (1.0-4.8); MEAN CORPUSCULAR HEMOGLOBIN 32.4 pg (26.0-34.0); MEAN CORPUSCULAR HGB CONC 33.3 G/dL (31.0-37.0); MEAN CORPUSCULAR VOLUME 97 fL (80-100); MONOCYTES % (AUTO) 11.4 % (2.0-9.0); NEUTROPHILS # (AUTO) 6.1 K/uL (1.8-7.7); NEUTROPHILS % (AUTO) 66.7 % (40.0-70.0); PLATELET COUNT (AUTO) 424 K/uL (150-450); RED BLOOD CELL COUNT(AUTO) 3.61 MIL/uL (4.50-5.90); WHITE BLOOD COUNT (AUTO) 9.1 K/uL (4.5-11.0)
[2023-12-13 07:30] LABS: ALANINE AMINOTRANSFERASE 14 U/L (12-78); ALBUMIN 2.6 g/dL (3.4-5.0); ALKALINE PHOSPHATASE 55 U/L (46-116); ANION GAP 4 mmol/L (8-16); ASPARTATE AMINOTRANSFERASE 13 U/L (15-37); BILIRUBIN,TOTAL 0.4 mg/dL (0.1-1.0); CARBON DIOXIDE 30 mmol/L (22-29); CHLORIDE 103 mmol/L (98-107); CREATININE 0.76 mg/dL (0.60-1.30); GLOMERULAR FILTR. RATE CALC > 60 mL/min (>60); GLUCOSE,RANDOM 99 mg/dL (70-110); POTASSIUM 4.1 mmol/L (3.5-5.1); SODIUM SERUM 137 mmol/L (136-145); TOTAL PROTEIN, SERUM 7.3 g/dL (6.4-8.2); UREA NITROGEN, BLOOD 20 mg/dL (7-18)
[2023-12-13 09:53] VITALS: BP 142/89; PULSE 92; RESP 18; TEMP 97.6; O2SAT 99
[2023-12-13 09:54] VITALS: BP 142/89; PULSE 92; RESP 18; TEMP 97.5; O2SAT 98
[2023-12-13] MEDS ORDERED: NICOTINE 14 MG/24 HOUR PATCH TD PRN (15:45)
[2023-12-13] MEDS ORDERED: MAG HYDROX/ALUMINUM HYD/SIMETH ES 30 ML SUSPENSION UDCUP PO PRN (15:45)
[2023-12-13] MEDS ORDERED: CloNIDine HCL 0.1 MG TABLET PO PRN (15:45)
[2023-12-13] MEDS ORDERED: ONDANSETRON 4 MG TABLET PO PRN (15:45)
[2023-12-13] MEDS ORDERED: LOPERAMIDE HCL 2 MG CAPSULE PO PRN (15:45)
[2023-12-13] MEDS ORDERED: ACETAMINOPHEN 325 MG TABLET PO PRN (15:45)
[2023-12-13] MEDS ORDERED: DOCUSATE SODIUM 100 MG CAPSULE PO PRN (15:45)
[2023-12-13] MEDS ORDERED: PETROLATUM,WHITE 28 GM JELLY TP PRN (15:45)
[2023-12-13] MEDS ORDERED: ALBUTEROL SULFATE HFA 90 MCG/PUFF 8 GM INHALER IH PRN (15:45)
[2023-12-13] MEDS ORDERED: MAGNESIUM HYDROXIDE SUSPENSION 30 ML UDCUP PO PRN (15:45)
[2023-12-13] MEDS ORDERED: GuaiFENesin/D-METHORPHAN [SUGAR-FREE] 200-20MG/10 ML SYRUP UDCUP PO PRN (15:45)
[2023-12-13] MEDS: HALOPERIDOL 5 MG TABLET PO SCH (16:21)
[2023-12-13] MEDS: FAMOTIDINE 20 MG TABLET PO SCH (16:25)
[2023-12-13] MEDS: MIRTAZAPINE 15 MG TABLET PO SCH (21:48)
[2023-12-13] MEDS: OLANZapine 7.5 MG TABLET PO SCH (21:48)
[2023-12-13 22:23] VITALS: RESP 18
[2023-12-14 07:43] LABS: THYROID STIMULATING HORMONE 1.74 uIU/mL (0.36-3.74)
[2023-12-14 11:05] VITALS: BP 101/74; PULSE 107; RESP 18; TEMP 97.2; O2SAT 96
[2023-12-14] MEDS: TAMSULOSIN HCL 0.4 MG CAPSULE PO SCH (11:16)
[2023-12-14] MEDS: FINASTERIDE 5 MG TABLET PO SCH (11:16)
[2023-12-14] MEDS: ETHYL ALCOHOL 62% ANTISEPTIC NASAL SANITIZER 0.6 ML AMPUL NASAL SCH (11:22)
[2023-12-14] MEDS: IBUPROFEN 400 MG TABLET PO PRN (11:22)
[2023-12-14 14:47] LABS: HEMOGLOBIN A1C 4.6 % (3.8-5.6)
[2023-12-14] MEDS: OLANZapine 7.5 MG TABLET PO SCH (17:23)
[2023-12-14 21:41] VITALS: RESP 18
[2023-12-15 09:30] VITALS: BP 104/70; PULSE 100; RESP 18; TEMP 98.5; O2SAT 98
[2023-12-15 21:32] VITALS: BP 97/67; PULSE 100; RESP 18; TEMP 97.7; O2SAT 97
[2023-12-15] MEDS: ZOLPIDEM TARTRATE 10 MG TABLET PO PRN (21:39)
[2023-12-16 09:51] VITALS: BP 116/81; PULSE 88; RESP 19; TEMP 98.1; O2SAT 99
[2023-12-16 21:00] VITALS: BP 107/74; PULSE 97; RESP 18; TEMP 97.9; O2SAT 97
[2023-12-17 08:52] VITALS: BP 122/72; PULSE 73; RESP 16; O2SAT 99
[2023-12-17 21:19] VITALS: BP 134/75; PULSE 94; RESP 18; TEMP 98.2; O2SAT 99
[2023-12-18 09:07] VITALS: BP 110/75; PULSE 88; RESP 14; TEMP 98.1; O2SAT 99
[2023-12-18] MEDS ORDERED: OLAN7.5T22 PO (14:31)
[2023-12-18] MEDS ORDERED: HALO5TAB23 PO (14:31)
[2023-12-18] MEDS ORDERED: MIRT-89 PO (14:31)
[2023-12-18] MEDS ORDERED: FINA-27 PO (14:56)
[2023-12-20] MEDS ORDERED: ERGOCALCIFEROL (VIT D2) 50,000 UNITS [1,250 MCG] CAPSULE PO SCH (09:00)
== END 2023-12-18 18:01 | disposition home or self-care (01) | DRG 885 ==
LOC: 3EX 23:06
PROVIDERS: ADMIT Psychiatry & Neurology Psychiatry; ATTEND Psychiatry & Neurology Psychiatry
PROC: GZHZZZZ Group Psychotherapy (ICD-10-PCS; principal; 2023-12-13)
PROC: GZ56ZZZ Individual Psychotherapy, Supportive (ICD-10-PCS; 2023-12-13)
DX: F25.1 Schizoaffective disorder, depressive type (principal); I10 Essential (primary) hypertension; D64.9 Anemia, unspecified; G47.00 Insomnia, unspecified; K59.00 Constipation, unspecified; F31.9 Bipolar disorder, unspecified; Z79.899 Other long term (current) drug therapy
CPT/HCPCS: 80053; 80061; 83036; 84443; 85025; 87081; G0378